=== PATIENT | male | born 1970 | race Caucasian/White ===

== ENCOUNTER 2021-04-15 03:39 | Emergency (ER) | payer SELFPAY ==
[~2021-04-15] VITALS: Ht 193 cm; Wt 129.0 kg
[2021-04-15] MEDS ORDERED: DOXY100T2 PO (04:01)
[2021-04-15] MEDS ORDERED: PERM60CR17 TP (04:01)
[2021-04-15] MEDS ORDERED: MUPI22OI2 TP (04:01)
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
[2021-04-15 04:17] VITALS: BP 160/105
== END 2021-04-15 04:17 | disposition home or self-care (01) ==
LOC: ER 03:42
DX: B86 Scabies (principal); E66.9 Obesity, unspecified; I10 Essential (primary) hypertension; E11.9 Type 2 diabetes mellitus without complications; F17.200 Nicotine dependence, unspecified, uncomplicated